=== PATIENT | male | born 1965 | race Two or more races ===

== ENCOUNTER 2020-08-20 19:33 | Inpatient (IN) | payer MEDICAID ==
[~2020-08-20] VITALS: Ht 157.5 cm; Wt 66.2 kg
--- NOTE | 2020-08-20 19:35 | NUR ---
PT BIBRA C/O MIDSTERNAL CP X4 HRS AGO. PER RA GIVEN 2 PUFS OF NITRO, REFUSED ASPIRIN. PT NOTED ETOH. PLACED IN BED 11 ON CARPENTER REFRIGERATOR AND PULSE OX. PT NOTED TACHY AT 128. AWAITING MD FOR ORDERS AND EVAL. VSS.
[2020-08-20] MEDS ORDERED: ASPIRIN 81 MG TAB.CHEW ONE (19:48)
--- NOTE | 2020-08-20 19:56 | NUR ---
EMT AT BEDSIDE FOR EKG
[2020-08-20] MEDS ORDERED: IV NS 0.9% 1,000 ML BAG IV ONE ×2 (20:00→21:00)
[2020-08-20] MEDS ORDERED: NITROGLYCERIN 0.4 MG/TAB BOTTLE SL ONE (20:00)
[2020-08-20] MEDS ORDERED: LORAZEPAM INJ 2 MG/ML VIAL IV ONE (20:00)
[2020-08-20] MEDS ORDERED: ASPIRIN 81 MG TAB.CHEW PO ONE (20:00)
[2020-08-20] MEDS ORDERED: ONDANSETRON HCL/PF 4 MG/2 ML VIAL IVP ONE (20:00)
[2020-08-20 20:01] LABS: BASOPHILS # (AUTO) 0.1 /CMM (0.0-0.2); BASOPHILS % (AUTO) 4.1 % (0.0-2.0); HEMATOCRIT 45 % (39-51); HEMOGLOBIN 14.8 g/dL (13.5-17.5); LYMPHOCYTES # (AUTO) 0.8 /CMM (0.8-4.8); LYMPHOCYTES % (AUTO) 28.8 % (20.0-44.0); MEAN CORPUSCULAR HGB CONC 33 g/dl (31.0-36.0); MEAN CORPUSCULAR VOLUME 95 fL (80-96); MONOCYTES # (AUTO) 0.3 /CMM (0.1-1.30); NEUTROPHILS # (AUTO) 1.6 /CMM (1.8-8.9); NEUTROPHILS % (AUTO) 58.1 % (43.0-81.0); PLATELET COUNT (AUTO) 93 /CMM (150-450); RED BLOOD CELL COUNT(AUTO) 4.71 MIL/uL (4.5-6.0); WHITE BLOOD COUNT (AUTO) 2.8 K/uL (4.3-11.0)
[2020-08-20] MEDS ORDERED: NITROGLYCERIN 0.4 MG/TAB BOTTLE ONE (20:01)
[2020-08-20] MEDS ORDERED: LORAZEPAM INJ 2 MG/ML VIAL ONE (20:01)
[2020-08-20] MEDS ORDERED: ONDANSETRON HCL/PF 4 MG/2 ML VIAL ONE (20:01)
[2020-08-20 20:09] LABS: CALCIUM, SERUM 8.6 mg/dL (8.5-10.1); CARBON DIOXIDE 18 mmol/L (21-32); CHLORIDE 92 mmol/L (98-107); CREATININE 0.8 mg/dL (0.6-1.3); GLUCOSE 288 mg/dL (74-106); POTASSIUM 4.2 mmol/L (3.5-5.1); SODIUM SERUM 131 mmol/L (136-145); UREA NITROGEN, BLOOD 6 mg/dL (7-18)
--- NOTE | 2020-08-20 20:10 | NUR ---
PT REFUSING TO TAKE NITRO SL.
[2020-08-20 20:15] LABS: ALANINE AMINOTRANSFERASE 290 U/L (12-78); ALKALINE PHOSPHATASE 183 U/L (46-116); ASPARTATE AMINOTRANSFERASE 322 U/L (15-37); BILIRUBIN,DIRECT 0.7 mg/dL (0.0-0.2); BILIRUBIN,TOTAL 1.5 mg/dL (0.2-1.0); TOTAL PROTEIN, SERUM 8.4 g/dL (6.4-8.2)
--- NOTE | 2020-08-20 20:25 | NUR ---
UNABLE TO TAKE PT TO CT DUE TO PT MOVING AROUND IN BED. WILL TAKE PT TO CT WHEN HE IS CALM.
[2020-08-20 20:31] LABS: BAND % (MANUAL) 2 % (0.0-5.0); LYMPHOCYTES % (MANUAL) 30 % (16-48); MONOCYTES % (MANUAL) 8 % (0-11.0); NEUTROPHILS % (MANUAL) 60 (42-76)
--- NOTE | 2020-08-20 20:40 | NUR ---
PT BROUGHT TO CT
--- NOTE | 2020-08-20 21:18 | NUR ---
AMANDAID SWABBED, SENT TO LAB.
--- NOTE | 2020-08-20 21:54 | NUR ---
ER TEJAS SWAN SPOKE TO NORM [facility]OBAR [facility] REGARDING PT ADMISSION.
--- NOTE | 2020-08-20 21:59 | NUR ---
PT IN BED RESTING COMFORTABLY. PT CALLING STAFF "BABY" AND ASKING FOR MORE BLANKETS. BLANKETS PROVIDED.
[2020-08-20] MEDS ORDERED: ZOLPIDEM TARTRATE 5 MG TABLET PO PRN (22:00)
[2020-08-20] MEDS ORDERED: Z GUARD REMEDY 2 OZ OINT TP PRN (22:00)
[2020-08-20] MEDS ORDERED: ACETAMINOPHEN 325 MG TABLET PO PRN (22:00)
[2020-08-20] MEDS ORDERED: ONDANSETRON HCL/PF 4 MG/2 ML VIAL IVP PRN (22:00)
[2020-08-20] MEDS ORDERED: MAGNESIUM HYDROXIDE 30 ML UDC PO PRN (22:00)
[2020-08-20] MEDS ORDERED: MAG HYDROX/AL HYDROX/SIMETH 30 ML UDC PO PRN (22:00)
[2020-08-20] MEDS ORDERED: NITROGLYCERIN 0.4 MG/TAB BOTTLE SL PRN (22:00)
[2020-08-20] MEDS ORDERED: HYDROCODONE/APAP 5/325MG TABLET PO PRN (22:00)
--- NOTE | 2020-08-20 22:01 | NUR ---
SPOKE TO LAB REGARDING ALCOHOL LEVEL. LAB WILL PROVIDE RESULTS SOON.
[2020-08-20] MEDS ORDERED: LISI-607 PO (22:19)
--- NOTE | 2020-08-20 22:44 | NUR ---
REPORT GIVEN TO GAYLA MURGUIA FOR DANIEL
--- NOTE | 2020-08-20 23:04 | NUR ---
PT TRANSFERED PER ACLS PROTOCOL
[2020-08-20] MEDS ORDERED: Thiamine 100 MG/ML VIAL ONE (23:49)
[2020-08-21] VITALS (7 sets, daily range): BP systolic 143–172; BP diastolic 76–92
--- NOTE | 2020-08-21 | NUR ---
TELE/RN NOTES RECEIVED PATIENT FROM FOOD EDITOR CRISTAL. PATIENT TRANSFERRED WITH NO INJURIES SUSTAINED. PATIENT TRANSFERRED TO BED SAFELY. PATIENT IS ALERT AND ORIENTED X 2. PATIENT IS BREATHING EVENLY, NO SIGNS OF SOB OR RESPIRATORY DISTRESS NOTED. PATIENT STATES NO PAIN, NO CHEST PAIN. PATIENT HAS IV ACCESS ON LEFT AC #18 G INTACT FLUSHING WELL. PATIENT SIGNED BELONGINGS LIST. SKIN IS INTACT. SAFETY MEASURES ARE IN PLACE, BED IS LOCKED AND PLACED IN THE LOW POSITION, SIDE RAILS UP X 2, BED ALARM ON. CALL LIGHT IS WITHIN REACH. WILL CONTINUE TO MONITOR.
[2020-08-21] MEDS: IV NS 0.9% 1,000 ML IV PRN ×2 (00:11→14:28)
[2020-08-21] MEDS: Thiamine 100 MG in IV D5W 50 ML IV SCH ×2 (00:11→22:29)
[2020-08-21 03:21] LABS: BASOPHILS % (AUTO) 1.8 % (0.0-2.0); EOSINOPHILS % (AUTO) 0.1 % (0.0-6.0); HEMATOCRIT 38 % (39-51); HEMOGLOBIN 12.6 g/dL (13.5-17.5); LYMPHOCYTES # (AUTO) 0.8 /CMM (0.8-4.8); LYMPHOCYTES % (AUTO) 33.3 % (20.0-44.0); MEAN CORPUSCULAR HGB CONC 33 g/dl (31.0-36.0); MEAN CORPUSCULAR VOLUME 93 fL (80-96); MONOCYTES # (AUTO) 0.3 /CMM (0.1-1.30); MONOCYTES % (AUTO) 12.7 % (2.0-12.0); NEUTROPHILS # (AUTO) 1.3 /CMM (1.8-8.9); NEUTROPHILS % (AUTO) 52.1 % (43.0-81.0); PLATELET COUNT (AUTO) 75 /CMM (150-450); WHITE BLOOD COUNT (AUTO) 2.5 K/uL (4.3-11.0)
[2020-08-21 03:30] LABS: ALBUMIN 3.1 g/dL (3.4-5.0); BILIRUBIN,TOTAL 0.8 mg/dL (0.2-1.0); CALCIUM, SERUM 7.2 mg/dL (8.5-10.1); CREATININE 0.7 mg/dL (0.6-1.3); MAGNESIUM 2.2 mg/dL (1.8-2.4); PHOSPHORUS 3.5 mg/dL (2.5-4.9); POTASSIUM 3.8 mmol/L (3.5-5.1); TOTAL PROTEIN, SERUM 6.5 g/dL (6.4-8.2)
[2020-08-21] MEDS: LORAZEPAM INJ 2 MG/ML VIAL IV PRN ×2 (03:30→17:53)
--- NOTE | 2020-08-21 03:30 | NUR ---
TELE/RN NOTES PATIENT FEELING RESTLESS AND STATED HAVING TROUBLE SLEEPING. PATIENT GIVEN ATIVAN 0.5 MG IVP. WILL CONTINUE TO ASSESS
[2020-08-21 03:44] LABS: BAND % (MANUAL) 1 % (0.0-5.0); LYMPHOCYTES % (MANUAL) 31 % (16-48); MONOCYTES % (MANUAL) 10 % (0-11.0); NEUTROPHILS % (MANUAL) 58 (42-76)
--- NOTE | 2020-08-21 06:35 | NUR ---
TELE/RN CLOSING NOTES PATIENT IN BED, SLEEPING. PATIENT IS ALERT AND ORIENTED X 2. PATIENT IS ON ROOM AIR TOLERATING WELL. NO SIGNS OF SOB OR RESPIRATORY DISTRESS NOTED. NO CHEST PAIN NOTED AT THIS TIME. PATIENT HAS LEFT AC #18G IV INTACT RUNNING NS AT 90 ML/HR. PATIENT NPO, ICE CHIPS OK. ALL NEEDS HAVE BEEN MET DURING SHIFT. SAFETY MEASURES ARE IN PLACE, BED IS LOCKED AND PLACED IN THE LOW POSITION, SIDE RAILS UP X 2. CALL LIGHT IS WITHIN REACH. WILL ENDORSE TO DAY SHIFT.
--- NOTE | 2020-08-21 08:00 | NUR ---
TELE/RN AM NOTES PATIENT IS ALERT AND ORIENTED X 2. REORIENTATION GIVEN. PATIENT IS ON ROOM AIR TOLERATING WELL. NO SIGNS OF SOB OR RESPIRATORY DISTRESS NOTED. NO CHEST PAIN NOTED AT THIS TIME. PATIENT HAS LEFT AC #18G IV INTACT RUNNING NS AT 90 ML/HR. PATIENT NPO, ICE CHIPS OK. ALL NEEDS HAVE BEEN MET DURING SHIFT. SAFETY MEASURES ARE IN PLACE, BED IS LOCKED AND PLACED IN THE LOW POSITION, SIDE RAILS UP X 2. CALL LIGHT IS WITHIN REACH.
[2020-08-21] MEDS: PANTOPRAZOLE 40 MG VIAL IV SCH (08:35)
[2020-08-21] MEDS: LISINOPRIL (5MG) 5 MG TABLET PO SCH (08:36)
[2020-08-21] MEDS ORDERED: ASPIRIN EC 81 MG TABLET.DR PO ONE (09:00)
--- NOTE | 2020-08-21 09:00 | NUR ---
PT IS NOTED TO HAVE MILD HAND TREMORS AND HIS BREATH STILL SMELLS ALCOHOL.ENCOURAGED TO DRINK WATER BUT PT KEEPS REFUSING AND ONLY WANTS JELLO AND APPLE SAUCE.REFUSED BREAKFAST.PT IS UNABLE TO STAND AND UNABLE TO WALK.
[2020-08-21] MEDS ORDERED: IV NS 0.9% 250 ML IV ONE (10:41)
[2020-08-21] MEDS ORDERED: IOHEXOL-350 100 ML VIAL IV ONE (10:41)
[2020-08-21] MEDS: METOPROLOL TARTRATE INJ 5 MG/5 ML AMPUL IVP PRN ×10 (10:55→11:40)
[2020-08-21 10:56] LABS: BASOPHILS # (AUTO) 0.1 /CMM (0.0-0.2); BASOPHILS % (AUTO) 4.4 % (0.0-2.0); EOSINOPHILS % (AUTO) 0.1 % (0.0-6.0); HEMATOCRIT 39 % (39-51); LYMPHOCYTES # (AUTO) 0.4 /CMM (0.8-4.8); LYMPHOCYTES % (AUTO) 19.2 % (20.0-44.0); MEAN CORPUSCULAR HGB CONC 33 g/dl (31.0-36.0); MEAN CORPUSCULAR VOLUME 94 fL (80-96); MONOCYTES # (AUTO) 0.3 /CMM (0.1-1.30); MONOCYTES % (AUTO) 15.2 % (2.0-12.0); NEUTROPHILS # (AUTO) 1.3 /CMM (1.8-8.9); NEUTROPHILS % (AUTO) 61.1 % (43.0-81.0); PLATELET COUNT (AUTO) 75 /CMM (150-450); RED BLOOD CELL COUNT(AUTO) 4.16 MIL/uL (4.5-6.0); WHITE BLOOD COUNT (AUTO) 2.1 K/uL (4.3-11.0)
[2020-08-21] MEDS ORDERED: NITROGLYCERIN 0.4 MG/TAB BOTTLE ONE (10:57)
[2020-08-21] MEDS ORDERED: METOPROLOL TARTRATE INJ 5 MG/5 ML AMPUL ONE ×3 (10:58→11:37)
[2020-08-21] MEDS ORDERED: NITROGLYCERIN 0.4 MG/TAB BOTTLE SL ONE (11:00)
[2020-08-21] MEDS ORDERED: IV NS 0.9% 500 ML IV PRN (11:00)
[2020-08-21 11:26] LABS: ALBUMIN 3.3 g/dL (3.4-5.0); BILIRUBIN,TOTAL 1.1 mg/dL (0.2-1.0); CALCIUM, SERUM 7.6 mg/dL (8.5-10.1); CREATININE 0.7 mg/dL (0.6-1.3); MAGNESIUM 2.1 mg/dL (1.8-2.4); PHOSPHORUS 2.9 mg/dL (2.5-4.9); POTASSIUM 3.7 mmol/L (3.5-5.1); TOTAL PROTEIN, SERUM 6.8 g/dL (6.4-8.2)
[2020-08-21 12:01] LABS: LYMPHOCYTES % (MANUAL) 18 % (16-48); MONOCYTES % (MANUAL) 13 % (0-11.0); NEUTROPHILS % (MANUAL) 69 (42-76)
--- NOTE | 2020-08-21 13:00 | NUR ---
CALLED AND SPOKE TO PT'S [phone]. ERICA STATED THAT PT HASN'T EATEN FOR ONE MONTH AND JUST DRINKS 36 BEERS A DAY.PT IS NOTED TO KEEP SPITTING SALIVA IN A TOWEL.REFUSED TO DRINK WATER AND REFUSED MEALS SINCE MORNING AND JUST EATS JELLO AND APPLE SAUCE ONLY.ENCOURAGED TO DRINK WATER BUT DRINKS JUICE MINIMALLY INSPITE OF EXPLAINING THE IMPORTANCE OF HYDRATING WITH WATER. PT INISTS TO REFUSE.
[2020-08-21] MEDS: METOPROLOL TARTRATE 50 MG TABLET PO SCH ×3 (14:38→23:46)
[2020-08-21] MEDS: CLONIDINE HCL 0.1 MG TABLET PO PRN ×2 (14:38→17:52)
--- NOTE | 2020-08-21 16:00 | NUR ---
FRANKY,COSMETOLOGY PROFESSOR SPOKE TO THE PT TO EVALUATE HIM.
--- NOTE | 2020-08-21 16:20 | NUR ---
SS consult requested for homelessness. The pt. is a 53-year old Male in [place] for 55-year-old male patient with PMH of Hypertension and chronic alcohol abuse who presented to the ED for acute left-sided chest pain, per MD note. Upon SS consultation, the pt. was lying in bed resting. The pt. is receptive to meeting with SW and Korean speaking only. SW completed assessment in Korean. Patient is alert and oriented x 4. The pt. appears unkempt and made appropriate eye contact throughout interview. The pt. stated that he is currently experiencing homelessness due to alcoholism and binge drinking. Pt. stated that he has been staying in his car for a Pt. stated he consumes 6-10 beers/ day. However, nurse, Carole informed SW that the pt.s , Nathalia Serrato [phone] reports the pt. consumes 36 beers/ per day with no meals. Patient reports no drug use. Pt stated that he has been drinking since the age of 16. Patient stated that drinking is a problem for him. Pt. denies current SI/HI. Pt. with depressed mood and thought process WNL. Patient denies current hallucinations, however, states that he has auditory & visual hallucination when drinking too much. Pt. is ambulatory normally and currently experiencing weakness. Pt. stated he does not receive any benefits. Initial D/C plan: Patient stated he is willing to go to a rehab for ETOH. SW to make referrals tomorrow as per Lita FRY there is no D/C order yet. Patient stated he is also interested in halfway and SW provided pt. with the following resources: Substance Abuse resources provided included: [facility] Substance Abuse Self-Helpline (SAS) ; CRI -HELP [address] [facility]. [place] [id number] ; [facility] [address] [facility] [address] ; [facility] [address] [facility] [address] ; [facility] [address] [facility] [address] ; [facility] 9061 [facility] [address] ; [facility] [address] [facility] [id number] ; [facility] Substance Abuse Helpline(SAS)-[facility] ; [facility] ; [facility] [place]; [facility] [place]; [facility]Help [place]; I-[facility] Inter [facility] [place]ordon [place]; [facility]; [place]; [facility]; [facility], [facility]. Lane; Alcoholics Anonymous -SFV; Hb-Psmj-Dcvahgs ; Marijuana Anonymous -SFV; Narcotics Anonymous www.na.org. Year-round shelters: [facility] [address] [place] [address] ; [facility] [address] [place] [address]; [place] [facility] Iflfnjw1259 [facility]. [facility] [address] Hygiene: [facility]: [address] [place] ; [facility] [address] [facility] ; [facility] [address]906 Jordon [address] . Food Resources: [place] [facility] at [facility]- [address] [place]; Meet Each Need with Dignity ([facility]) [address] [place]; [facility] 4779 [facility]; [facility] [address] [place] [place]. Mental Health resources provided: [facility] [address] [place] [address] ; [facility] [address] [facility] [address], [place] [address] ; [facility] [address] [facility] [place] [address] ; [facility] [place] [address] Healthcare Clinics: [facility] [address] [facility], [address] [place]. [place] ; [facility] [address] [facility] [address] [place] [address]; [facility] [address] [facility] [place] [address] [phone] Addendum: 08/21/20 at 1632 by FRANKY RUSSELL SS consult requested for homelessness. The pt. is a 53-year old Male in [place] with PMH of Hypertension and chronic alcohol abuse who presented to the ED for acute left-sided chest pain, per MD note. Upon SS consultation, the pt. was lying in bed resting. The pt. is receptive to meeting with YVONNE and Korean speaking only. SW completed assessment in Korean. Patient is alert and oriented x 4. The pt. appears unkempt and made appropriate eye contact throughout interview. The pt. stated that he is currently experiencing homelessness due to alcoholism and binge drinking. Pt. stated that he has been staying in his car for a Pt. stated he consumes 6-10 beers/ day. However, nurse, Carole informed SW that the pt.s , Nathalia Serrato [phone] reports the pt. consumes 36 beers/ per day with no meals. Patient reports no drug use. Pt stated that he has been drinking since the age of 16. Patient stated that drinking is a problem for him. Pt. denies current SI/HI. Pt. with depressed mood and thought process WNL. Patient denies current hallucinations, however, states that he has auditory & visual hallucination when drinking too much. Pt. is ambulatory normally and currently experiencing weakness. Pt. stated he does not receive any benefits. Initial D/C plan: Patient stated he is willing to go to a rehab for ETOH. SW to make referrals tomorrow as per Lita FRY there is no D/C order yet. Patient stated he is also interested in halfway and SW provided pt. with the following resources: Substance Abuse resources provided included: [facility] Substance Abuse Self-Helpline ([facility]) ; CRI -HELP [address] [facility]. [place] [address] ; [place] [id number] [facility] [address] ; [facility] [address] [facility] [address] ; [facility] [address] [facility] [address] ; [facility] 3626 [facility] [address] ; [email or web address] 909 [facility] [address] ; [facility] Substance Abuse Helpline([facility] ; [facility] ; [facility] [place]; [facility] [place]; [facility] [place]; I-[facility]; [facility] [place]; [place] [place]; [facility]; [facility] Lane; Alcoholics Anonymous -SFV; Bt-Absy-Uxrsljd ; Marijuana Anonymous -SFV; Narcotics Anonymous www.na.org. Year-round shelters: [facility] [address] [place] [address] ; [facility] [address] [place] [address]; [place] [facility] Dzowsgp4557 [facility]. [facility] [address] Hygiene: [facility]: [address] [place] ; [facility] [address] [facility] ; [facility] 8392 [facility] [place] . Food Resources: [place] [facility] at [facility]- 5700 [facility]; Meet Each Need with Dignity ([facility]) [address] [facility]; [facility] 4368 [facility]; [facility] 5194 [facility]. Mental Health resources provided: [facility] [address] [place] [address] ; [facility] [address] [facility] [address], [place] [address] ; [place]avier [facility] [address] [place] [address] ; [facility] [address] [place], [place] [id number] Healthcare Clinics: [facility] [address] [facility], [address] [place]. [place] ; [facility] [address] [facility] [address] [place] [address]; [facility] [address] [facility] [place] [address] [phone]
--- NOTE | 2020-08-21 17:12 | NUR ---
PT KEEPS SPITTING ON THE TOWEL AND ISN'T VOMITING.PT STATED HE FEELS A LITTLE NAUSEOUS-ADMINISTERED ZOFRAN IV.
--- NOTE | 2020-08-21 18:30 | NUR ---
PT'S LYING COMFORTABLY IN BED.WITH MILD HAND TREMORS NOTED.PT STILL REFUSED MEALS AND WATER.JUST LOVES TO EAT JELLO INSPITE OF EXPLAINING THE RISKS AND BENEFITS. WITH ONGOING IVF INFUSION OF NS AT 90 ML/HR INFUSING WELL TO LT AC.CALL LIGHT PLACED WITHIN REACH.
--- NOTE | 2020-08-21 19:14 | NUR ---
RECEIVED IN BED AWAKE AND ANSWERED TO HIS NAME. 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
[2020-08-22 00:04] VITALS: BP 143/72
[2020-08-22 00:22] VITALS: BP 144/78
--- NOTE | 2020-08-22 04:45 | NUR ---
CLOSING NOTES: REMAINS ALERT AND ORIENTATED THIS 12 HOURS. VERBALIZES HIS NEEDS. REQUESTES MOSTLY FOR JELLO. MELÉNDEZ W/O PROBLEMS. CARE TAKEN WHEN MEDICATION BEING GIVEN D/T WAS TOLD HE POCKETS HIS MEDS IN HIS CHEEKS. ON THE TELE MONITOR HE IS NSR THRU THE NIGHT. NO C/O SOB OR CHESTPAIN. REFUSED THE SCD'S OFFERED X2 WITH REASON HE SHOULD WEAR THEM AND THAT THE MD ORDERED THEM...REFUSED. BED ALARM ON THRU THE NIGHT FOR SAFETY. BLOOD PRESSURE STABLE AND WITHIN NORMAL RANGE
[2020-08-22 05:03] VITALS: BP 160/95
[2020-08-22] MEDS: METOPROLOL TARTRATE 50 MG TABLET PO SCH ×2 (05:51→12:07)
[2020-08-22 06:45] LABS: BASOPHILS # (AUTO) 0.1 /CMM (0.0-0.2); BASOPHILS % (AUTO) 3.4 % (0.0-2.0); EOSINOPHILS % (AUTO) 0.2 % (0.0-6.0); HEMATOCRIT 41 % (39-51); LYMPHOCYTES # (AUTO) 0.6 /CMM (0.8-4.8); LYMPHOCYTES % (AUTO) 21.4 % (20.0-44.0); MEAN CORPUSCULAR HGB CONC 34 g/dl (31.0-36.0); MEAN CORPUSCULAR VOLUME 93 fL (80-96); MONOCYTES # (AUTO) 0.6 /CMM (0.1-1.30); MONOCYTES % (AUTO) 19.7 % (2.0-12.0); NEUTROPHILS # (AUTO) 1.6 /CMM (1.8-8.9); NEUTROPHILS % (AUTO) 55.3 % (43.0-81.0); PLATELET COUNT (AUTO) 86 /CMM (150-450); RED BLOOD CELL COUNT(AUTO) 4.44 MIL/uL (4.5-6.0); WHITE BLOOD COUNT (AUTO) 2.8 K/uL (4.3-11.0)
[2020-08-22 07:25] LABS: ALBUMIN 3.3 g/dL (3.4-5.0); BILIRUBIN,TOTAL 1.5 mg/dL (0.2-1.0); CALCIUM, SERUM 8.6 mg/dL (8.5-10.1); CREATININE 0.7 mg/dL (0.6-1.3); MAGNESIUM 2.4 mg/dL (1.8-2.4); PHOSPHORUS 2.5 mg/dL (2.5-4.9); POTASSIUM 3.3 mmol/L (3.5-5.1); TOTAL PROTEIN, SERUM 7.2 g/dL (6.4-8.2)
--- NOTE | 2020-08-22 07:30 | NUR ---
RN OPENING NOTE THE PATIENT IS RECEIVED IN BED. PATIENT IS ALERT AND ORIENTED X2. ABLE TO MAKE NEEDS KNOWN VERBALLY. IN ROOM AIR AND DENIES SOB. RESPIRATION REGULAR AND UNLABORED. DENIES PAIN. TELE BOX READING IS SINUS RHYTHM 88. THE PATIENT IS IN NO APPARENT DISTRESS. LAC G 18 PATENT AND SALINE LOCKED. BED LOW AND LOCKED. SIDE RAILS UP X2. CALL LIGHT WITHIN REACH. WILL CONTINUE TO MONITOR.
[2020-08-22] MEDS: PANTOPRAZOLE 40 MG VIAL IV SCH (08:23)
[2020-08-22] MEDS: LISINOPRIL (5MG) 5 MG TABLET PO SCH (08:23)
[2020-08-22 08:41] VITALS: BP 153/99
[2020-08-22 08:53] LABS: LYMPHOCYTES % (MANUAL) 24 % (16-48); MONOCYTES % (MANUAL) 19 % (0-11.0); NEUTROPHILS % (MANUAL) 57 (42-76)
[2020-08-22] MEDS ORDERED: MULT-754 PO (09:16)
[2020-08-22] MEDS ORDERED: POTASSIUM CHLORIDE 20 MEQ POWDER PACKET PO ONE (10:00)
--- NOTE | 2020-08-22 10:40 | NUR ---
RN PT ORDER PER DR SHUKLA AN ORDER OF PT EVAL IS PLACED.
--- NOTE | 2020-08-22 11:20 | NUR ---
RN IMPROVED LEVEL OF CONSCIOUSNESS PATIENT NOTED WITH IMPROVED LEVEL OF CONSCIOUSNESS. NOW THE PATIENT IS ALERT AND ORIENTED X3. ASLO, NOTED PATIENT HAVING MORE STABLE GAIT COMPARED TO MORNING ASSESSMENT.
--- NOTE | 2020-08-22 11:24 | NUR ---
YVONNE NOTE: YVONNE faxed referral to Alex Osorio, hospital liaison at [facility] F: [phone].
--- NOTE | 2020-08-22 11:27 | NUR ---
YVONNE NOTES: SW contacted pts Nathalia ([phone]) to confirm pts return home. SW explained that a referral to [facility] has been made and also a referral for SNF placement, however, due to his insurance he may not be covered and may not be accepted. stated that pt is able to return home. SW stated that pt has been cleared for discharge on this present day. agreed with pt returning home and provided the correct address ([address] [place] [id number]).
[2020-08-22 12:07] VITALS: BP 136/91
--- NOTE | 2020-08-22 13:57 | NUR ---
SW NOTE: SW received a call from Vaishali Gong, patient navigator at [facility] (P: [phone] ex:[phone] F:[phone]) stating pt was denied due to insurance coverage.
--- NOTE | 2020-08-22 15:20 | NUR ---
RN NOTE PATIENT REFUSED BLOOD DRAW DESPITE EXPLAINING RISKS AND BENEFITS. DR SHUKLA IS MADE AWARE.
--- NOTE | 2020-08-22 15:40 | NUR ---
RN CLOSING NOTE THE PATIENT IS ALERT AND ORIENTED X 3 WITH EPISODES OF FORGETFULNESS. IN ROOM AIR AND OXYGEN SATURATION IS AT 98%. DENIES SOB. BREATHING IS EVEN AND UNLABORED. DENIES PAIN. REMOVED IV LINE FROM LEFT AC WITH MINIMAL BLEEDING. THE SITE COVERED WITH FOLDED 2X2. DISCHARGE EDUCATION/INSTRUCTION PROVIDED TO THE PATIENT AND (ERICA) AND BOTH VERBALIZED UNDERSTANDING. THE PATIENT LEFT THE HOSPITAL IN STABLE CONDITION. PATIENT PICKED UP BY ON A PRIVATE CAR.
[2020-08-22] MEDS ORDERED: THIAMINE HCL 100 MG TABLET PO SCH (21:00)
[2020-08-23] MEDS ORDERED: PANTOPRAZOLE 40 MG TABLET.DR PO SCH (09:00)
== END 2020-08-22 16:00 | disposition home or self-care (01) | DRG 282 ==
LOC: ER 19:36 → TELE 22:53 → MED 08-22 08:11
PROVIDERS: ADMIT Nurse Practitioner Acute Care; ATTEND Internal Medicine
DX: K85.20 Alcohol induced acute pancreatitis without necrosis or infection (principal); G92 Toxic encephalopathy; F10.239 Alcohol dependence with withdrawal, unspecified; F10.229 Alcohol dependence with intoxication, unspecified; Y90.8 Blood alcohol level of 240 mg/100 ml or more; I10 Essential (primary) hypertension; K76.0 Fatty (change of) liver, not elsewhere classified; D61.818 Other pancytopenia; Z59.0 Homelessness; Z91.19 Patient's noncompliance with other medical treatment and regimen; D69.59 Other secondary thrombocytopenia; R73.9 Hyperglycemia, unspecified; K70.9 Alcoholic liver disease, unspecified; R74.01 Elevation of levels of liver transaminase levels; D72.819 Decreased white blood cell count, unspecified; E80.6 Other disorders of bilirubin metabolism; I25.10 Atherosclerotic heart disease of native coronary artery without angina pectoris; K29.20 Alcoholic gastritis without bleeding; K20.90 Esophagitis, unspecified without bleeding; I24.9 Acute ischemic heart disease, unspecified; R00.0 Tachycardia, unspecified
CPT/HCPCS: 36415; 70450-TC; 71045-TC; 75574; 76700-TC; 80048-TC; 80053-TC; 80076-TC; 82140-TC; 83690-TC; 83735-TC; 84100-TC; 84484-TC; 85025-TC; 87081-TC; 93307-TC; 97116-TC; 97530-TC; C9113; C9803; G0378; G0480; J2060; J2405; J3411; J3490; J7030; J7050; J7060; Q9967

== ENCOUNTER 2020-12-27 00:35 | Emergency (ER) | payer SELFPAY ==
[~2020-12-27] VITALS: Ht 167.6 cm; Wt 63.5 kg
[~2020-12-27 00:35] MED LIST: LISI-768 PO; MULT-754 PO
--- NOTE | 2020-12-27 00:39 | NUR ---
PATIENT CAME TO ER BED 13 [facility] C/O ETOH. PATIENT STATES THAT HE HAD 6 CANS OF BEER AND A "SMALL BOTTLE OF VODKA". PATIENT IS AAOX3. NO SOB. BREAHTING EVENLY AND UNLABORED ON ROOM AIR. CONNECTED TO THE MONITOR.
[2020-12-27] MEDS ORDERED: IV NS 0.9% 1,000 ML BAG IV ONE (01:00)
[2020-12-27 01:26] LABS: BASOPHILS # (AUTO) 0.1 /CMM (0.0-0.2); BASOPHILS % (AUTO) 3.6 % (0.0-2.0); EOSINOPHILS % (AUTO) 0.1 % (0.0-6.0); HEMATOCRIT 40 % (39-51); HEMOGLOBIN 13.6 g/dL (13.5-17.5); LYMPHOCYTES # (AUTO) 1.1 /CMM (0.8-4.8); LYMPHOCYTES % (AUTO) 40.5 % (20.0-44.0); MEAN CORPUSCULAR HGB CONC 34 g/dl (31.0-36.0); MEAN CORPUSCULAR VOLUME 97 fL (80-96); MONOCYTES # (AUTO) 0.3 /CMM (0.1-1.30); MONOCYTES % (AUTO) 12.6 % (2.0-12.0); NEUTROPHILS # (AUTO) 1.1 /CMM (1.8-8.9); NEUTROPHILS % (AUTO) 43.2 % (43.0-81.0); PLATELET COUNT (AUTO) 83 /CMM (150-450); RED BLOOD CELL COUNT(AUTO) 4.13 MIL/uL (4.5-6.0); WHITE BLOOD COUNT (AUTO) 2.6 K/uL (4.3-11.0)
[2020-12-27 01:34] LABS: ALBUMIN 3.3 g/dL (3.4-5.0); BILIRUBIN,DIRECT 0.3 mg/dL (0.0-0.2); BILIRUBIN,TOTAL 0.6 mg/dL (0.2-1.0); CALCIUM, SERUM 8.6 mg/dL (8.5-10.1); CREATININE 0.6 mg/dL (0.6-1.3); POTASSIUM 3.3 mmol/L (3.5-5.1); TOTAL PROTEIN, SERUM 7.8 g/dL (6.4-8.2)
--- NOTE | 2020-12-27 02:19 | NUR ---
LEFT PHONE NUMBER [phone]
[2020-12-27 03:04] LABS: LYMPHOCYTES % (MANUAL) 37 % (16-48); MONOCYTES % (MANUAL) 9 % (0-11.0); NEUTROPHILS % (MANUAL) 54 (42-76)
--- NOTE | 2020-12-27 04:54 | NUR ---
PATIENT IS SLEEPING. EASILY AROUSABLE THROUGH VERBAL STIMULI. CONNECTED TO THE SALES SERVICE REPRESENTATIVE. SIDE RAILS UP FOR SSAFETY. CALL LIGHT WITHIN REACH. SITTER AT BEDSIDE.
--- NOTE | 2020-12-27 06:50 | NUR ---
ATTEMPTED TO CALL 3x WITH NO RESPONSE. LEFT VOICEMAIL.
--- NOTE | 2020-12-27 08:04 | NUR ---
CALLED NO ANSWER.
--- NOTE | 2020-12-27 09:48 | NUR ---
IV removed. Catheter intact and site benign. Pressure and 4x4 applied to site. No bleeding noted.
--- NOTE | 2020-12-27 09:51 | NUR ---
Patient able to ambulate without assistance. md aware. Patient discharged to home in stable condition. Written and verbal after care instructions given. Patient verbalizes understanding of instruction.
[2020-12-27 09:52] VITALS: BP 128/84
== END 2020-12-27 09:52 | disposition home or self-care (01) ==
LOC: ER 00:36
DX: F10.129 Alcohol abuse with intoxication, unspecified (principal); I10 Essential (primary) hypertension; Z59.0 Homelessness; Z79.899 Other long term (current) drug therapy; Y90.8 Blood alcohol level of 240 mg/100 ml or more
CPT/HCPCS: 36415; 80048; 80076; 80320; 82962; 85007; 85025; 85730; 96360; 99283; J7030; G0480